=== PATIENT | male | born 1955 | race Caucasian/White ===

== ENCOUNTER → 2021-03-29 | Outpatient (CLI) | payer MEDICARE ==
--- NOTE | 2021-03-29 08:31 | US ---
EXAMINATION TYPE: US duplex aorta DATE OF EXAM: 03/29/2021 COMPARISON: NONE CLINICAL HISTORY: Z13.6 AAA Screening. Family history of AAA EXAM MEASUREMENTS: Abdominal Aorta: Proximal: 2.4 x 2.4cm Mid: 2.0 x 2.1cm Distal: 1.7 x 1.9cm Right Iliac: 1.2 x 1.0cm Left Iliac: 1.1 x 1.1cm No AAA seen at this time IMPRESSION: No evidence for abdominal aortic aneurysm at this time.
== END | disposition home or self-care (01) ==
LOC: RADUSWWP 07:30
PROVIDERS: ATTEND Family Medicine
DX: Z13.6 Encounter for screening for cardiovascular disorders (principal); Z82.49 Family history of ischemic heart disease and other diseases of the circulatory system
CPT/HCPCS: 93979

== ENCOUNTER 2023-04-21 06:29 | Day surgery (SDC) | payer MEDICARE ==
[2023-04-19 10:36] VITALS: BMI 29.9
[2023-04-21 06:59] VITALS: RESP 16; TEMP 97.5
[2023-04-21] MEDS: LACTATED RINGERS 1,000 ML IV SCH ×2 (06:59→07:35)
[2023-04-21] MEDS ORDERED: PROPOFOL 10 MG/ML 20 ML VIAL IV ONE (07:41)
[2023-04-21] MEDS ORDERED: LIDOCAINE 1% INJ 10MG/ML (20 ML MDV) ONE (07:41)
--- NOTE | 2023-04-21 08:07 | P.PCN ---
Date of Procedure: 04/21/23 Procedure(s) Performed: Brief history: Patient is a pleasant 67-year-old white male scheduled for an elective upper endoscopy as well as colonoscopy as a part of evaluation of epigastric discomfort and GERD and screening for colon cancer Procedure performed: Esophagogastroduodenoscopy with biopsy Colonoscopy Preoperative diagnosis: GERD/epigastric pain Screening for colon cancer Anesthesia: MAC Procedure: After informed consent was obtained from the patient was brought into the endoscopy unit and IV sedation was administered by anesthesia under continuous monitoring. Initially upper endoscopy was done. The Olympus GF 160 video endoscope was inserted inserted into the mouth and esophagus intubated without any difficulty and was gradually advanced into the stomach and duodenum and carefully examined. The bulb and second part of the duodenum appeared normal. The scope was then withdrawn into the stomach adequately insufflated with air and upon careful examination the antrum and body, cardia and fundus appeared normal. The scope was then withdrawn into the esophagus. The GE junction was located at 40 cm to the incisors. It appeared regular with 2 superficial erosions consistent with LA grade B reflux esophagitis.. Rest of the esophagus appeared normal. Patient tolerated the procedure well. At this time the patient continued to remain sedation. Initial digital rectal examination was normal. Olympus CF 160 video colonoscope was then inserted into the rectum and gradually advanced to the cecum without any difficulty. Careful examination was performed as the scope was gradually being withdrawn. The prep was excellent. The cecum, ascending colon, transverse colon, descending colon, sigmoid colon and rectum appeared normal. Scattered sigmoid diverticulosis. Retroflexion was performed in the rectum and no lesions were noted. Patient tolerated the procedure well. Impression: 1. Upper endoscopy revealed mild antral gastritis and LA grade B reflux esophagitis 2. Colonoscopy revealed scattered similar diverticulosis but no evidence of colorectal neoplasia Recommendations: Findings of this examination were discussed with the patient as well as his family. He was advised to follow with the biopsy results. Recommend using Pepcid 20 mg twice daily and follow antrum reflux measures. Repeat screening colonoscopy in 10 years.
[2023-04-21 08:41] VITALS: BP 123/72
[2023-04-21 08:42] VITALS: PULSE 44
== END 2023-04-21 09:10 | disposition home or self-care (01) ==
LOC: ORWHC2ENDO 06:29
PROVIDERS: ATTEND Internal Medicine Gastroenterology
DX: Z12.11 Encounter for screening for malignant neoplasm of colon (principal); K57.30 Diverticulosis of large intestine without perforation or abscess without bleeding; K21.00 Gastro-esophageal reflux disease with esophagitis, without bleeding; I10 Essential (primary) hypertension; E78.5 Hyperlipidemia, unspecified; Z79.82 Long term (current) use of aspirin; Z79.899 Other long term (current) drug therapy
CPT/HCPCS: 88305; 43239; J2001; J2704; G0121

== ENCOUNTER → 2024-06-21 | Outpatient (CLI) | payer MEDICARE ==
--- NOTE | 2024-06-21 09:06 | MR ---
EXAMINATION TYPE: MR Prostate wo/w con DATE OF EXAM: 06/21/2024 7:36 AM COMPARISON: None. CLINICAL INDICATION: Male, 68 years old with history of R97.20 Elevated PSA; Elevated PSA TECHNIQUE: Multi-planar, multi-sequence imaging of the pelvis is performed prior to and following the uncomplicated administration of bolus intravenous gadolinium. IV Contrast: 10 mL Gadobutrol Interpretive Criteria: PI-RADS v2.1 SERUM PSA: 03/2024=4.98, 02/2023=3.89 SURGICAL PATHOLOGY: No data available. FINDINGS: Prostatic dimensions: 4.8 x 5.3 x 3.9 cm. Ellipsoid Volume:51.95 (PSA density=0.10 ng/mL/mL) CENTRAL GLAND (Central and Transition Zones/CZ+TZ): Anterior left mid gland lesion with high DWI and low ADC signal measuring up to 19 x 16 mm. (PI-RADS 5) PERIPHERAL ZONE (PZ): Bilateral linear, indistinct wedgelike areas of low ADC, and low T2 signal, No evidence of masslike a bnormality, or localized perfusional hypervascularity, to further suggest a focus of clinically signi ficant prostate cancer. (PI-RADS 2) SEMINAL VESICLES (SV): Symmetric and unremarkable. PERIPROSTATIC TISSUES: Unremarkable. LYMPH NODES: No enlarged pelvic lymph node. REMAINING PELVIS: Bladder wall is within normal limits given distention. No abnormal free or organized intrapelvic fluid collection. No pathologic bowel dilation or mural thickening. Colonic diverticula are present. No hernia visualized OSSEOUS STRUCTURES: No suspicious osseous abnormality. IMPRESSION: 1. PI-RADS 5 Lesion in the central zone, mid gland measuring 8 19 x 16 mm. 2. Moderate BPH, estimated gland volume 51.95 mL. 3. No suspicious osseous lesion. No lymphadenopathy. No evidence of prostate adenocarcinoma involving the periprostatic tissues. [facility], , 06/21/2024 9:03 AM
== END | disposition home or self-care (01) ==
LOC: RADMRIMAIN 06:38
PROVIDERS: ATTEND Urology
DX: N40.0 Benign prostatic hyperplasia without lower urinary tract symptoms (principal); R97.20 Elevated prostate specific antigen [PSA]
CPT/HCPCS: 72197; A9585

== ENCOUNTER → 2024-07-03 | Outpatient (CLI) | payer MEDICARE ==
[2024-07-03 18:34] LABS: Basophils # (A) 0.07 X 10*3/uL (0.00-0.10); Basophils % (A) 1.1 %; Eosinophils # (A) 0.23 X 10*3/uL (0.04-0.35); Eosinophils % (A) 3.6 %; HCT 43.3 % (39.6-50.0); HGB 14.8 g/dL (13.0-17.0); Lymphocytes # (A) 1.99 X 10*3/uL (0.90-5.00); Lymphocytes % (A) 31.5 %; MCH 31.4 pg (27.0-32.0); MCHC 34.2 g/dL (32.0-37.0); MCV 91.7 FL (80.0-97.0); Mean Platelet Volume 10.4 FL (9.5-12.2); Monocytes # (A) 0.55 X 10*3/uL (0.20-1.00); Monocytes % (A) 8.7 %; NRBC Per 100 WBC 0 X 10*3/uL (0.00-0.01); Neutrophils # (A) 3.45 X 10*3/uL (1.80-7.70); Neutrophils % (A) 54.8 %; Platelet Count 240 X 10*3/uL (140-440); RBC 4.72 X 10*6/uL (4.40-5.60); RDW 12.6 % (11.5-14.5); WBC 6.31 X 10*3/uL (4.50-10.00)
[2024-07-03 18:41] LABS: BUN/Creat Ratio 12.08 Ratio (12.00-20.00); Blood Urea Nitrogen 14.5 mg/dL (9.0-27.0); Calcium 9.7 mg/dL (8.7-10.3); Carbon Dioxide 26.1 mmol/L (21.6-31.8); Chloride 102 mmol/L (96-109); Glucose 98 mg/dL (70-110); Potassium 4.3 mmol/L (3.5-5.5); Sodium 139 mmol/L (135-145)
[2024-07-03 19:28] LABS: Appearance,Urine Clear (Clear); Bilirubin,Urine Negative (Negative); Blood,Urine Negative (Negative); Color,Urine Yellow (Yellow); Ketones,Urine Negative (Negative); Nitrite,Urine Negative (Negative); Urobilinogen,Urine 0.2 E.U./DL
== END | disposition home or self-care (01) ==
LOC: LABPAT 13:29
PROVIDERS: ATTEND Urology
DX: Z01.812 Encounter for preprocedural laboratory examination (principal); R97.20 Elevated prostate specific antigen [PSA]
CPT/HCPCS: 36415; 80048; 81003; 85025; 87086

== ENCOUNTER 2024-07-09 11:04 | Day surgery (SDC) | payer MEDICARE ==
--- NOTE | 2024-07-08 07:47 | P.HPIHPCON ---
History of Present Illness H&P Date: 07/08/24 Chief Complaint: Elevated PSA This is a 68-year-old male with history of elevated PSA of 4.9. Underwent MRI of of the prostate that showed evidence of a PI-RADS 5 lesion along the mid gland. Discussed with him given this finding I do recommend proceeding with an MRI fusion biopsy of the prostate. He is aware of the risk which include but not limited to bleeding, infection Consent for Procedure: I have explained the operation/procedure to the patient, including the risks, benefits, side effects, alternative therapies (including not receiving the proposed treatment or service), the likelihood of the patient achieving his/her goals, and potential recuperation problems for the procedure/sedation/analgesia, as well as any blood products, if indicated. I also explained to the patient the risks, benefits and side effects of the alternatives, as well as the risks related to not receiving the proposed procedure, care, treatment, or services. Past Medical History Past Medical History: GERD/Reflux, Hearing Disorder / Deafness, Hyperlipidemia, Hypertension, Skin Disorder Additional Past Medical History / Comment(s): Hard of hearing. Eczema. History of Any Multi-Drug Resistant Organisms: None Reported Past Surgical History: Orthopedic Surgery Additional Past Surgical History / Comment(s): Right knee arthroscopy, bilateral cataract surgery. hemorhoids Past Anesthesia/Blood Transfusion Reactions: No Reported Reaction Smoking Status: Former smoker - Past Family History Mother Family Medical History: Cancer Medications and Allergies Home Medications Medication Instructions Recorded Confirmed Type Cholecalciferol (Vitamin D3) 125 mcg PO DAILY 04/19/23 07/05/24 History [Vitamin D3 (125 MCG = 5,000 IU)] Fenofibrate 54 mg PO QAM 04/19/23 07/05/24 History Rosuvastatin [Crestor] 20 mg PO QAM 04/19/23 07/05/24 History Vitamin K2 [Vitamin K-2] 100 mcg PO DAILY 04/19/23 07/05/24 History amLODIPine BESYLATE/BENAZEPRIL 1 cap PO QAM 04/19/23 07/05/24 History [amLODIPine BESYLATE/BENAZEPRIL 5-20 mg] hydroCHLOROthiazide 25 mg PO QAM 04/19/23 07/05/24 History Allergies Allergy/AdvReac Type Severity Reaction Status Date / Time dust Allergy Unknown Uncoded 07/05/24 15:09 Surgical - Exam - General no distress, no pain - Eyes normal ocular movement, no pale - ENT normal nares, normal mucosa - Respiratory normal expansion, normal respiratory effort - Abdomen Abdomen: soft, non tender - Psychiatric oriented to time, oriented to person, oriented to place Assessment and Plan Assessment: MRI fusion biopsy of the prostate
[~2024-07-09 11:04] MED LIST: HYDROmorphone 0.5 MG/0.5 ML SYRINGE IVP PRN; MIDAZOLAM 2 MG/2 ML VIAL IV PRN
[2024-07-09 12:48] VITALS: TEMP 97.9
[2024-07-09] MEDS: IV FLUID CONTINUATION 1,000 ML IV ONE (12:54)
[2024-07-09] MEDS: LACTATED RINGERS 1,000 ML IV SCH (12:55)
[2024-07-09] MEDS: GENTAMICIN 40 MG/ML 2 ML VIAL IM PRN (13:07)
[2024-07-09] MEDS: ONDANSETRON 4 MG/2 ML VIAL IVP STA (13:13)
[2024-07-09] MEDS ORDERED: PROPOFOL 10 MG/ML 20 ML VIAL IV ONE (13:46)
[2024-07-09] MEDS ORDERED: MIDAZOLAM 2 MG/2 ML VIAL ONE (13:46)
--- NOTE | 2024-07-09 14:20 | P.OP ---
Date of Procedure: 07/09/24 Preoperative Diagnosis: Elevated PSA Postoperative Diagnosis: Same Procedure(s) Performed: MRI fusion biopsy of the prostate Anesthesia: MAC Surgeon: Leonel Bray Estimated Blood Loss (ml): 0 Pathology: other (Prostate biopsies) Condition: stable Disposition: PACU Indications for Procedure: This is a 68-year-old male with history of elevated PSA of 4.9. Underwent MRI of of the prostate that showed evidence of a PI-RADS 5 lesion along the mid gland. Discussed with him given this finding I do recommend proceeding with an MRI fusion biopsy of the prostate. He is aware of the risk which include but not limited to bleeding, infection Description of Procedure: The patient was taken to the operating room and placed in the left lateral decubitus position. The [employer] transrectal ultrasound probe was placed intrarectally. It was then placed within the stand of the [employer] MRI/TRUS Fusion for Prostate Biopsy system. The prostate was imaged in both the axial and sagittal planes. Using the Biopsy gun, 4 biopsies were obtained from the target lesion, there were was one lesions, . The remaining 12 biopsies of the peripheral zone were obtained utilizing a standard template. Once the procedure was completed, the ultrasound probe was removed. The patient tolerated the procedure well was taken to the recovery room stable condition
[2024-07-09 14:31] VITALS: BP 114/78; PULSE 51; RESP 18
== END 2024-07-09 14:45 ==
LOC: OR 11:04
PROVIDERS: ATTEND Urology
DX: C61 Malignant neoplasm of prostate (principal); R97.20 Elevated prostate specific antigen [PSA]; E78.5 Hyperlipidemia, unspecified; I10 Essential (primary) hypertension; Z87.891 Personal history of nicotine dependence
CPT/HCPCS: 55700; J2250; J1580; J2405; J2704; 88305; 88344